=== PATIENT | female | born 1990 | race Caucasian/White ===

== ENCOUNTER 2017-08-02 16:01 | Emergency (ER) | payer OTHER ==
[~2017-08-02] VITALS: Ht 167.6 cm; Wt 104.3 kg
--- NOTE | 2017-08-02 17:43 | Urgent Treatment Center Report ---
History of Present Issue Date/Time Seen by Provider 08/02/17 1743 Visit Reason Pt arrived:Walked Presenting Problem:PT C/O LT EAR PAIN X2 WEEKS Location if Accident: Onset of symptoms date/time:/ or onset unknown for:MEDICAL HX UNKNOWN Have you (or family members/close friends) recently traveled outside the [place]? N If Yes, where/when: Have you had exposure to infectious disease within the past month? TB? Other? Specify: c/o left ear pain x 2 weeks and sinus pain x 1 week. Started w/ rhinorrhea and nasal congestion 2-3 weeks ago. Sudafed has helped but once stopped, symptoms no better. Denies fever. No ear drainage. Hearing described as "constantly under water". Sinus pain and pressure worse on left. Hasn't taken or tried anything else for symptoms. No fever, aches, chills. Source patient Exam Limitations no limitations ALLERGIES Coded Allergies: No Known Allergies (08/14/16) History Medical History General CAD? No Angina: No [place]: No Hypertension? Yes Hyperlipidemia? No CHF? No DVT? No PE? No COPD? No Asthma? No Anemia? No GERD? No Gastric ulcers? No GI Bleed? No Hernia? No Thyroid Problems? No Hypothyroidism? No CVA? No Seizures? No Diabetes? No Renal Insuffiency? No UTI? No Stones? No BPH? No GB Disease: No Nephritic Syndrome? No Asplenia? No Hepatitis? No Sickle Cell Disease? No Arthritis? No Migraines? No Cataracts? No Glaucoma? No MRSA? No HIV? No TB? No Anxiety? No Depression? No Cancer? No More? No Immunization HX DT/Tetanus UNKNOWN Flu 2014-FSN Pneumonia Refuses Surgical Hx Previous Surgery?N TONSILLECTOMY Family History Family HX Diabetes No CAD No Hypertension Yes Hyperlipidemia No Cancer No TB No Social History Smoking Hx Smoker: Never Smoker Tobacco: No Alcohol Alcohol: No Review of Systems All Other Systems Reviewed and Negative Constitutional see HPI Eyes denies drainage ENT see HPI. denies: throat pain. Respiratory denies cough Gastrointestinal denies no symptoms reported Musculoskeletal neck pain (left lateral, "below ear") Psychiatric/Neurological headache Physical Exam Vital Signs Vital Signs Date Time Temp Pulse Resp B/P Pulse O2 O2 Flow FiO2 Ox Delivery Rate 08/02 1707 98.1 68 20 128/87 99 General Appearance no apparent distress, obese Eye Exam - bilateral eye normal exam Ear, Nose, Throat clear fluid w/ mild bulging of left TM otherwise normal TMs and EACs, mild nasal congestion, moderate tenderness left maxillary sinus, normal pharynx Neck tender lateral (left, consistent w/ eustachian) Respiratory Status No: respiratory distress, productive cough, non productive cough. Lung Sounds anterior: lungs clear. posterior: lungs clear. bilateral: lungs clear. Cardiovascular regular rate/rhythm, no peripheral edema, no murmur Neurologic alert, oriented x 3 Mental status normal mood/affect Skin normal color, warm/dry Lymphatic no adenopathy Medical Decision Making LABS/Meds/Orders Pt receiving controlled substance in ED? No Departure Departure Time of Disposition 174 Disposition DC Home or Self Care(routine) Clinical Impression Primary Impression: Dysfunction of left eustachian tube Secondary Impressions: Left maxillary sinusitis Condition STABLE Referrals Wes VERNON,Ramses (Family) IMMEDIATELY for new or worsening symptoms OR no noticeable improvement over the next 48-72 hours. 911 for difficulty breathing or swallowing. Patient Instructions DI for Eustachian Tube Dysfunction-Adult, DI for Sinusitis Additional Instructions * Start antibiotic and be sure to take as ordered for the FULL length of time even if you feel better. Sinus infections do not get better overnight. It may take 2-3 days to notice much improvement so be sure to use conservative measures as discussed for symptoms. * augmentin can cause GI side effects. Probiotics help prevent these symptoms. * OK to continue Sudafed. Calritin + Sudafed would help your ear symptoms * Flonase 2 sprays each nostril daily to help with nasal congestion, sinus and ear pressure/inflammation * Lots of fluids * Sleep elevated * Humidifier/vaporizer * Sinus rinses twice a day Discharge Counseling Counseled pt/family regarding diagnosis, medications/RX, home care, follow up needs Prescriptions Current Visit Scripts Fluticasone Propionate (Flonase 50 Mcg Nasal [place]) 2 SPRAY NA DAILY #1 BOT Amoxicillin/Potassium Clav (Augmentin 875-125 Tablet) 1 EACH PO BID #[id number] TAB at 1800
[2017-08-02 17:54] VITALS: BP 128/87
--- OUTSIDE RECORDS SUMMARY | 2017-08-25 05:19 | External Medical Summary Rpt ---
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 Name Role Phone Cleve Villa MD, Unavailable Unavailable Cleve Vasquez MD, Unavailable Unavailable Maciel Vasquez MD Purpose Continuity of Care Document - 07-19-2013 through 2016 Problems Code Diagnosis DOS Provider Status 642.33 642.33 11-25-2013 [facility] TEPART 625.9 625.9 FEM 07-20-2013 [facility] NOS 648.93 648.93 OTH 07-20-2013 [facility] RTUM 789.03 789.03 07-20-2013 [place] [facility] Allergies, Adverse Reactions, Alerts Type Allergy to substance Adverse Reaction to Substance Substance Reaction Severity NO KNOWN ALLERGIES Unknown Unknown Medications Na ND Rx Da Fi Fi Am Da Di Ph RX Ph St me C No te ll ll ou ys ag ar # ys at rm s nt no ma ic us Or Da si cy ia de te s n re d Ib 62 01 0 No up 58 -1 ro 40 6- Lo fe 74 20 ng n 60 14 er 40 1 0M Ac G ti Ta ve bl et LA [address] 40 -1 AT 97 4- Lo ED 95 20 ng 30 14 er RI 9 NG Ac ER ti S ve IN JE CT IO N PI 11 01 0 No TO 11 -1 CI 11 4- Lo N 11 20 ng 30 13 14 er 3 UN Ac IT ti S/ ve LR 50 0M L IV MA 00 01 1 No GN 40 -1 ES 96 4- Lo IU 72 20 ng M 90 14 er BARKLEY 3 LF Ac ti 20 ve G/ 50 0 ML BA G MA 00 01 2 No PA 90 -1 P 41 4- Lo 32 98 20 ng 5 26 14 er MG 1 Ac TA ti BL ve ET LA 20 01 2 No NO 45 -1 LI 18 4- Lo N 71 20 ng CR 22 14 er EA 6 M Ac 56 ti GM ve LA [address] 40 -1 AT 97 0- Lo ED 95 20 ng 30 14 er RI 9 NG Ac ER ti S ve IN JE CT IO N MA 00 01 0 No GN 40 -1 ES 96 0- Lo IU 72 20 ng M 90 14 er BARKLEY 3 LF Ac ti 20 ve G/ 50 0 ML BA G MA 00 01 0 No PA 90 -1 P 41 0- Lo 32 98 20 ng 5 26 14 er MG 1 Ac TA ti BL ve ET MA 00 01 0 No OM 64 -1 ET 11 0- Lo LOPEZ 49 20 ng ZI 53 14 er NE 5 Ac 25 ti ve MG /M L AM PU L MA 00 09 0 No PA 90 -0 P 41 5- Lo 32 98 20 ng 5 26 13 er MG 1 Ac TA ti BL ve ET CE 00 09 0 No FA 40 -0 ZO 92 4- Lo LI 58 20 ng N 50 13 er 1 1 GM Ac ti AD ve D- VA N AL SO 00 09 0 No DI 40 -0 UM 97 4- Lo 10 20 ng CH 16 13 er LO 6 RI Ac DE ti ve 0. 9% SO LN Sa 63 09 1 No li 80 -0 ne 70 4- Lo 10 20 ng Fl 07 13 er us 5 h Ac 10 ti ML ve Sy ri ng e ON 00 09 0 No DA 64 -0 NS 16 4- Lo ET 08 20 ng RO 02 13 er N 5 HC Ac L ti 4 ve MG /2 ML AL Mo 00 09 0 No rp 40 -0 hi 91 4- Lo ne 76 20 ng 23 13 er 2M 0 G/ Ac Ml ti ve Sy ri ng e NI 47 09 0 No TR 78 -0 OF 10 4- Lo UR 30 20 ng AN 80 13 er TO 1 IN Ac ti MC ve R 10 0 MG CA P OX 00 09 1 No YC 40 -0 OD 60 4- Lo ON 51 20 ng E- 26 13 er AC 2 ET Ac AM ti IN ve OP HE N 5- 32 5 Vital Signs 07-20-2013 16:00 Name Value Interpretat Reference Comment ion Range Body 98.3 [degF] Temperature BP 56 mm[Hg] Diastolic BP Systolic 114 mm[Hg] Heart 73 /min Rate/Pulse Respiratory 16 /min Rate 07-20-2013 08:00 Name Value Interpretat Reference Comment ion Range O2% 98 % 07-19-2013 17:19 Name Value Interpretat Reference Comment ion Range Height 167.64 cm Weight 90.720 kg Measured 07-19-2013 11:45 Name Value Interpretat Reference Comment ion Range Body 98 [degF] Temperature BP 77 mm[Hg] Diastolic BP Systolic 162 mm[Hg] Heart 76 /min Rate/Pulse O2% 95 % Respiratory 20 /min Rate Weight 0 [oz_av] Measured Results Labs Lab Lab Date Result Refere Interp Status Commen Order Detail nces retati t Range on Magnesium SerPl-mCnc (11-29-2013 06:30) Magnesi 6.1 1.4-2.2 complet um 014 mg/dL ed SerPl-m 06:30 Cnc pH BldCo (11-28-2013 06:00) pH 7.37 7.35-7. complet BldCo 014 UNK 45 ed 06:00 BASIC METABOLIC PANEL (11-28-2013 03:40) Glucose 89 74-106 complet 014 mg/dL ed Bld-mCn 03:40 c BUN 14 7-18 complet Bld-mCn 014 mg/dL ed c 03:40 Creat 0.8 0.6-1.0 complet SerPl-m 014 mg/dL ed Cnc 03:40 Creat 186 50-200 complet Cl 014 ML/MIN ed predict 03:40 ed SerPl C-G-vRa te GFR/BSA 91 59- complet .pred 014 ML/MIN ed SerPl 03:40 Schwart z-vRate Sodium 137 136-145 complet SerPl-s 014 mmoL/L ed Cnc 03:40 Potassi 3.9 3.5-5.1 complet um 014 mmoL/L ed SerPl-s 03:40 Cnc Chlorid 103 98-107 complet e 014 mmoL/L ed SerPl-s 03:40 Cnc CO2 22 21.0-32 complet SerPl-s 014 mmoL/L .0 ed Cnc 03:40 Calcium 8.5 8.5-10. complet 014 mg/dL 1 ed SerPl-m 03:40 Cnc URIC ACID (11-28-2013 03:40) URIC 4.9 2.6-7.2 complet ACID 014 mg/dL ed 03:40 Magnesium SerPl-mCnc (11-28-2013 03:40) Magnesi 1.6 1.4-2.2 complet um 014 mg/dL ed SerPl-m 03:40 Cnc AST SerPl-cCnc (11-28-2013 03:40) AST 6 U/L 15-37 complet SerPl-c 014 ed Cnc 03:40 ALT SerPl-cCnc (11-28-2013 03:40) ALT 15 U/L 30-65 complet SerPl-c 014 ed Cnc 03:40 Fibrinogen PPP-mCnc (11-28-2013 03:40) Fibrino 486.0 204.1-4 complet gen 014 mg/dL 58.1 ed PPP-mCn 03:40 c D Dimer PPP (11-28-2013 03:40) D Dimer 1160 0-400 High complet PPP 014 ng/mL alert ed 03:40 CBC with AUTO DIFF (11-28-2013 03:40) WBC # 11-28- 11.2 4.8-10. complet Bld 014 K/MM3 8 ed Auto 03:40 RBC # 4.24 4.2-5.4 complet Bld 014 M/mm3 ed Auto 03:40 Hgb 12.2 12.2-16 complet Bld-mCn 014 g/dL .2 ed c 03:40 Hct Fr 34.0 % 37.0-47 complet Bld 014 .0 ed 03:40 MCV RBC 80.2 fl 82.2-97 complet 014 .8 ed 03:40 MCH RBC 28.7 pg 27-31.2 complet Qn 014 ed Auto 03:40 MEAN 35.7 31.8-35 complet CORPUSC 014 g/dl .4 ed ULAR 03:40 HGB CONC RDW RBC 01-14-2 14.0 % 11.5-17 complet Auto 014 .5 ed 03:40 Platele 11-28-2 238 142-424 complet t Bld 014 K/mm3 ed Ql 03:40 Manual MEAN 11-28-2 7.4 fl 7.4-10. complet PLATELE 014 4 ed T 03:40 VOLUME Granulo 11-28-2 69.9 % 37.0-80 complet cytes 014 .0 ed Fr Bld 03:40 Auto LYMPH % 14-2 24.1 % 10-50.0 complet 014 ed 03:40 Monocyt 14-2 4.8 % 1.7-9.3 complet es Fr 014 ed Bld 03:40 Auto Eosinop 14-2 1.0 % 0.1-12. complet hil Fr 014 0 ed Bld 03:40 Auto Basophi 11-28-2 0.3 % 0.1-2.0 complet ls Fr 014 ed Bld 03:40 Auto Granulo 11-28-2 7.8 1.8-7.8 complet cytes # 014 K/mm3 ed Bld 03:40 Auto Lymphoc 11-28-2 2.7 0.7-4.5 complet ytes Fr 014 K/mm3 ed Bld 03:40 Auto Monocyt 14-2 0.5 0.1-1.0 complet es # 014 K/mm3 ed Bld 03:40 Auto Eosinop 14-2 0.1 0.0-0.4 complet hil # 014 K/mm3 ed Bld 03:40 Auto Basophi 14-2 0.0 0-0.2 complet ls # 014 K/MM3 ed Bld 03:40 Auto URINALYSIS/COMPLETE (11-28-2013 02:50) URINE 11-28-2 YELLOW YELLOW complet COLOR 014 ed 02:50 URINE 11-28-2 CLEAR CLEAR complet APPEARA 014 ed NCE 02:50 URINE 11-28-2 NEGATIV NEG complet GLUCOSE 014 E ed - 02:50 DIPSTIC K URINE 11-28-2 NEGATIV NEG complet BILIRUB 014 E ed IN - 02:50 DIPSTIC K URINE 14-2 NEGATIV NEG complet KETONE 014 E mg/dL ed 02:50 URINE 11-28-2 1.025 1.005-1 complet SPECIFI 014 UNK .030 ed C 02:50 GRAVITY URINE 11-28-2 NEGATIV NEG complet BLOOD 014 E ed 02:50 URINE 11-28-2 6.5 UNK 5.0-8.5 complet PH 014 ed 02:50 URINE 14-2 NEGATIV NEG complet PROTEIN 014 E mg/dL ed - 02:50 DIPSTIC K URINE 14-2 0.2 NEG complet UROBILI 014 E.U./dL ed NOGEN - 02:50 DIPSTIC K URINE 14-2 NEGATIV NEG complet NITRATE 014 E ed - 02:50 DIPSTIC K URINE 11-28-2 1+ NEG complet LEUK 014 ed ESTERAS 02:50 E URINE 11-28-2 3-5 0 complet RBC 014 rbc/hpf ed 02:50 URINE 11-28-2 20-50 O complet WBC 014 wbc/hpf ed 02:50 URINE 14-2 10-20 0-5 complet SQUAMOU 014 #/hpf ed S CELLS 02:50 URINE 11-28-2 2+ O complet BACTERI 014 ed A 02:50 URINE 11-28-2 OCC NONE complet YEAST 014 ed 02:50 Magnesium SerPl-mCnc (11-25-2013 05:00) Magnesi 5.3 1.4-2.2 complet um 014 mg/dL ed SerPl-m 05:00 Cnc Blood group antibodies SerPl (11-24-2013 10:15) Blood NEGATIV complet group 014 E ed antibod 10:15 ies SerPl BASIC METABOLIC PANEL (11-24-2013 10:15) Glucose 84 74-106 complet 014 mg/dL ed Bld-mCn 10:15 c BUN 13 7-18 complet Bld-mCn 014 mg/dL ed c 10:15 Creat 0.7 0.6-1.0 complet SerPl-m 014 mg/dL ed Cnc 10:15 Creat 208 50-200 complet Cl 014 ML/MIN ed predict 10:15 ed SerPl C-G-vRa te GFR/BSA 106 59- complet .pred 014 ML/MIN ed SerPl 10:15 Schwart z-vRate Sodium 01-10-2 138 136-145 complet SerPl-s 014 mmoL/L ed Cnc 10:15 Potassi 3.7 3.5-5.1 complet um 014 mmoL/L ed SerPl-s 10:15 Cnc Chlorid 104 98-107 complet e 014 mmoL/L ed SerPl-s 10:15 Cnc CO2 23 21.0-32 complet SerPl-s 014 mmoL/L .0 ed Cnc 10:15 Calcium 8.7 8.5-10. complet 014 mg/dL 1 ed SerPl-m 10:15 Cnc URIC ACID (11-24-2013 10:15) URIC 4.6 2.6-7.2 complet ACID 014 mg/dL ed 10:15 AST SerPl-cCnc (11-24-2013 10:15) AST 8 U/L 15-37 complet SerPl-c 014 ed Cnc 10:15 ALT SerPl-cCnc (11-24-2013 10:15) ALT 26 U/L 30-65 complet SerPl-c 014 ed Cnc 10:15 PROTIME/INR (11-24-2013 10:15) PROTHRO 9.4 9.9-11. complet MBIN 014 SECONDS 6 ed TIME 10:15 INR Bld 0.88 0.9-1.1 complet 014 UNK ed 10:15 ACT PARTIAL THROMBO TIME (11-24-2013 10:15) ACT 25.2 25.3-32 complet PARTIAL 014 SECONDS .0 ed 10:15 THROMBO TIME Fibrinogen PPP-mCnc (11-24-2013 10:15) Fibrino 492.9 204.1-4 complet gen 014 mg/dL 58.1 ed PPP-mCn 10:15 c D Dimer PPP (11-24-2013 10:15) D Dimer 1000 0-400 High complet PPP 014 ng/mL alert ed 10:15 CBC with AUTO DIFF (11-24-2013 10:15) WBC # 11-24- 8.0 4.8-10. complet Bld 014 K/MM3 8 ed Auto 10:15 RBC # 4.45 4.2-5.4 complet Bld 014 M/mm3 ed Auto 10:15 Hgb 12.4 12.2-16 complet Bld-mCn 014 g/dL .2 ed c 10:15 Hct Fr 36.0 % 37.0-47 complet Bld 014 .0 ed 10:15 MCV RBC 80.9 fl 82.2-97 complet 014 .8 ed 10:15 MCH RBC 27.9 pg 27-31.2 complet Qn 014 ed Auto 10:15 MEAN 34.5 31.8-35 complet CORPUSC 014 g/dl .4 ed ULAR 10:15 HGB CONC RDW RBC 13.9 % 11.5-17 complet Auto 014 .5 ed 10:15 Platele 218 142-424 complet t Bld 014 K/mm3 ed Ql 10:15 Manual MEAN 7.5 fl 7.4-10. complet PLATELE 014 4 ed T 10:15 VOLUME Granulo 70.9 % 37.0-80 complet cytes 014 .0 ed Fr Bld 10:15 Auto LYMPH % 23.1 % 10-50.0 complet 014 ed 10:15 Monocyt 4.8 % 1.7-9.3 complet es Fr 014 ed Bld 10:15 Auto Eosinop 1.0 % 0.1-12. complet hil Fr 014 0 ed Bld 10:15 Auto Basophi 0.3 % 0.1-2.0 complet ls Fr 014 ed Bld 10:15 Auto Granulo 5.7 1.8-7.8 complet cytes # 014 K/mm3 ed Bld 10:15 Auto Lymphoc 2 1.9 0.7-4.5 complet ytes Fr 014 K/mm3 ed Bld 10:15 Auto Monocyt 11-24-2 0.4 0.1-1.0 complet es # 014 K/mm3 ed Bld 10:15 Auto Eosinop 0.1 0.0-0.4 complet hil # 014 K/mm3 ed Bld 10:15 Auto Basophi 0.0 0-0.2 complet ls # 014 K/MM3 ed Bld 10:15 Auto BASIC METABOLIC PANEL (07-20-2013 06:00) Glucose 88 74-106 complet 013 mg/dL ed Bld-mCn 06:00 c BUN 4 mg/dL 7-18 complet Bld-mCn 013 ed c 06:00 Creat 0.7 0.6-1.0 complet SerPl-m 013 mg/dL ed Cnc 06:00 ESTIMAT 185 50-200 complet ED 013 ML/MIN ed CREATIN 06:00 INE CLEARAN CE GFR 106 59- complet (ESTIMA 013 ML/MIN ed ZULLY) 06:00 Sodium 138 136-145 complet SerPl-s 013 mmoL/L ed Cnc 06:00 Potassi 3.4 3.5-5.1 complet um 013 mmoL/L ed SerPl-s 06:00 Cnc Chlorid 102 98-107 complet e 013 mmoL/L ed SerPl-s 06:00 Cnc CO2 28 21.0-32 complet SerPl-s 013 mmoL/L .0 ed Cnc 06:00 Calcium 8.2 8.5-10. complet 013 mg/dL 1 ed SerPl-m 06:00 Cnc CBC with AUTO DIFF (07-20-2013 06:00) WBC # 6.9 4.8-10. complet Bld 013 K/MM3 8 ed Auto 06:00 RBC # 3.88 4.2-5.4 complet Bld 013 M/mm3 ed Auto 06:00 Hgb 11.3 12.2-16 complet Bld-mCn 013 g/dL .2 ed c 06:00 Hct Fr 31.9 % 37.0-47 complet Bld 013 .0 ed 06:00 MCV RBC 82.3 fl 82.2-97 complet 013 .8 ed 06:00 MCH RBC 29.0 pg 27-31.2 complet Qn 013 ed Auto 06:00 MEAN 35.2 31.8-35 complet CORPUSC 013 g/dl .4 ed ULAR 06:00 HGB CONC RDW RBC 14.0 % 11.5-17 complet Auto 013 .5 ed 06:00 Platele 07-20-2 177 142-424 complet t Bld 013 K/mm3 ed Ql 06:00 Manual MEAN 7.2 fl 7.4-10. complet PLATELE 013 4 ed T 06:00 VOLUME Granulo 2 68.3 % 37.0-80 complet cytes 013 .0 ed Fr Bld 06:00 Auto LYMPH % 07-20-2 25.5 % 10-50.0 complet 013 ed 06:00 Monocyt 07-20-2 4.9 % 1.7-9.3 complet es Fr 013 ed Bld 06:00 Auto Eosinop 07-20-2 1.1 % 0.1-12. complet hil Fr 013 0 ed Bld 06:00 Auto Basophi 05-2 0.3 % 0.1-2.0 complet ls Fr 013 ed Bld 06:00 Auto Granulo 05-2 4.7 1.8-7.8 complet cytes # 013 K/mm3 ed Bld 06:00 Auto Lymphoc 05-2 1.8 0.7-4.5 complet ytes Fr 013 K/mm3 ed Bld 06:00 Auto Monocyt 05-2 0.3 0.1-1.0 complet es # 013 K/mm3 ed Bld 06:00 Auto Eosinop 05-2 0.1 0.0-0.4 complet hil # 013 K/mm3 ed Bld 06:00 Auto Basophi 05-2 0.0 0-0.2 complet ls # 013 K/MM3 ed Bld 06:00 Auto COMPREHENSIVE METABOLIC PANEL (07-19-2013 12:45) Glucose 88 74-106 complet 013 mg/dL ed Bld-mCn 12:45 c BUN 7 mg/dL 7-18 complet Bld-mCn 013 ed c 12:45 Creat 0.6 0.6-1.0 complet SerPl-m 013 mg/dL ed Cnc 12:45 ESTIMAT 216 50-200 complet ED 013 ML/MIN ed CREATIN 12:45 INE CLEARAN CE GFR 07-19- 126 59- complet (ESTIMA 013 ML/MIN ed ZULLY) 12:45 Sodium 04-2 141 136-145 complet SerPl-s 013 mmoL/L ed Cnc 12:45 Potassi 07-19-2 3.5 3.5-5.1 complet um 013 mmoL/L ed SerPl-s 12:45 Cnc Chlorid 105 98-107 complet e 013 mmoL/L ed SerPl-s 12:45 Cnc CO2 07-19-2 26 21.0-32 complet SerPl-s 013 mmoL/L .0 ed Cnc 12:45 Calcium 07-19-2 8.4 8.5-10. complet 013 mg/dL 1 ed SerPl-m 12:45 Cnc Prot 07-19-2 6.8 6.4-8.2 complet SerPl-m 013 gm/dL ed Cnc 12:45 Albumin 07-19-2 3.0 3.4-5.0 complet 013 gm/dL ed SerPl-m 12:45 Cnc Globuli 07-19-2 3.8 1.3-3.2 complet n 013 gm/dL ed Ser-mCn 12:45 c Albumin 07-19-2 0.8 UNK 1.1-1.8 complet /Glob 013 ed SerPl-m 12:45 Rto Bilirub 07-19-2 0.3 0.2-1.0 complet 013 mg/dL ed SerPl-m 12:45 Cnc AST 07-19-2 6 U/L 15-37 complet SerPl-c 013 ed Cnc 12:45 ALT 07-19-2 25 U/L 30-65 complet SerPl-c 013 ed Cnc 12:45 ALP 07-19-2 73 U/L 50-136 complet SerPl-c 013 ed Cnc 12:45 CBC with AUTO DIFF (07-19-2013 12:45) WBC # 09-04-2 7.8 4.8-10. complet Bld 013 K/MM3 8 ed Auto 12:45 RBC # -04-2 4.16 4.2-5.4 complet Bld 013 M/mm3 ed Auto 12:45 Hgb -04-2 11.7 12.2-16 complet Bld-mCn 013 g/dL .2 ed c 12:45 Hct Fr -04-2 33.8 % 37.0-47 complet Bld 013 .0 ed 12:45 MCV RBC -04-2 81.2 fl 82.2-97 complet 013 .8 ed 12:45 MCH RBC -04-2 28.2 pg 27-31.2 complet Qn 013 ed Auto 12:45 MEAN 04-2 34.7 31.8-35 complet CORPUSC 013 g/dl .4 ed ULAR 12:45 HGB CONC RDW RBC -04-2 14.5 % 11.5-17 complet Auto 013 .5 ed 12:45 Platele -04-2 203 142-424 complet t Bld 013 K/mm3 ed Ql 12:45 Manual MEAN 07-19-2 7.4 fl 7.4-10. complet PLATELE 013 4 ed T 12:45 VOLUME Granulo -04-2 78.4 % 37.0-80 complet cytes 013 .0 ed Fr Bld 12:45 Auto LYMPH % -04-2 16.5 % 10-50.0 complet 013 ed 12:45 Monocyt 09-04-2 4.0 % 1.7-9.3 complet es Fr 013 ed Bld 12:45 Auto Eosinop 09-04-2 0.9 % 0.1-12. complet hil Fr 013 0 ed Bld 12:45 Auto Basophi 09-04-2 0.2 % 0.1-2.0 complet ls Fr 013 ed Bld 12:45 Auto Granulo 09-04-2 6.1 1.8-7.8 complet cytes # 013 K/mm3 ed Bld 12:45 Auto Lymphoc 09-04-2 1.3 0.7-4.5 complet ytes Fr 013 K/mm3 ed Bld 12:45 Auto Monocyt 09-04-2 0.3 0.1-1.0 complet es # 013 K/mm3 ed Bld 12:45 Auto Eosinop 09-04-2 0.1 0.0-0.4 complet hil # 013 K/mm3 ed Bld 12:45 Auto Basophi 09-04-2 0.0 0-0.2 complet ls # 013 K/MM3 ed Bld 12:45 Auto URINALYSIS/COMPLETE (07-19-2013 11:55) URINE 09-04-2 YELLOW YELLOW complet COLOR 013 ed 11:55 URINE -04-2 CLEAR CLEAR complet APPEARA 013 ed NCE 11:55 URINE 09-04-2 NEGATIV NEG complet GLUCOSE 013 E ed - 11:55 DIPSTIC K URINE 09-04-2 NEGATIV NEG complet BILIRUB 013 E ed IN - 11:55 DIPSTIC K URINE 09-04-2 NEGATIV NEG complet KETONE 013 E mg/dL ed 11:55 URINE 09-04-2 1.015 1.005-1 complet SPECIFI 013 UNK .030 ed C 11:55 GRAVITY URINE -04-2 NEGATIV NEG complet BLOOD 013 E ed 11:55 URINE -04-2 7.5 UNK 5.0-8.5 complet PH 013 ed 11:55 URINE -04-2 NEGATIV NEG complet PROTEIN 013 E mg/dL ed - 11:55 DIPSTIC K URINE 09-04-2 0.2 NEG complet UROBILI 013 E.U./dL ed NOGEN - 11:55 DIPSTIC K URINE -04-2 NEGATIV NEG complet NITRATE 013 E ed - 11:55 DIPSTIC K URINE 09-04-2 1+ NEG complet LEUK 013 ed ESTERAS 11:55 E URINE 09-04-2 OCC 0 complet RBC 013 rbc/hpf ed 11:55 URINE -04-2 3-5 O complet WBC 013 wbc/hpf ed 11:55 URINE 09-04-2 5-10 0-5 complet SQUAMOU 013 #/hpf ed S CELLS 11:55 URINE -04-2 TRACE O complet BACTERI 013 ed A 11:55 URINE -04-2 OCC NONE complet WAXY 013 #/lpf ed CAST 11:55 URINE -04-2 1+ NONE complet YEAST 013 ed 11:55 Encounters Encounter Start End Date Code Location Performer Type Date Inpatient CARI Vasquez MD ([place]) 4 02:34 4 10:00 [facility] Inpatient CARI Vasquez MD ([place]) 4 09:50 4 13:00 [facility] Inpatient CARI Villa MD ([place]) 3 12:00 3 16:40 [facility]
--- OUTSIDE RECORDS SUMMARY | 2017-08-25 05:19 | External Medical Summary Rpt ---
Author Author CAITLIN Address Unknown Phone [email or web address] Purpose Continuity of Care Document - through 2016
--- OUTSIDE RECORDS SUMMARY | 2017-08-25 05:19 | External Medical Summary Rpt ---
Author Author CAITLIN Address Unknown Phone [email or web address] Purpose Continuity of Care Document - through 2016
--- OUTSIDE RECORDS SUMMARY | 2017-08-25 05:19 | External Medical Summary Rpt ---
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 Role Phone Cleve Villa MD, Unavailable Unavailable Cleve Vasquez MD, Unavailable Unavailable Maciel Vasquez MD Purpose Continuity of Care Document - 07-19-2013 through 2016 Problems Code Diagnosis DOS Provider Status 642.33 642.33 11-25-2013 [facility] TEPART 625.9 625.9 FEM 07-20-2013 [facility] NOS 648.93 648.93 OTH 07-20-2013 [facility] RTUM 789.03 789.03 07-20-2013 [place] [facility] Allergies, Adverse Reactions, Alerts [...] 1 Ac TA ti BL ve ET ND 00 01 0 No OM 64 -1 [...] Vasquez MD ([place]) 4 02:34 4 10:00 [facility] Inpatient CARI Vasquez MD ([place]) 4 09:50 4 13:00 [facility] Inpatient CARI Villa MD ([place]) 3 12:00 3 16:40 [facility]
--- OUTSIDE RECORDS SUMMARY | 2017-08-25 05:20 | External Medical Summary Rpt ---
Author Author CAITLIN Cooper, CAITLIN Cooper Organization [employer] Address Unknown Phone Unavailable
--- OUTSIDE RECORDS SUMMARY | 2017-08-25 05:20 | External Medical Summary Rpt ---
Demographics Preferred Language Frisian Marital Status Unknown Restorationist Affiliation Unknown Race Unknown Ethnic Group Unknown Author Author CHRISTIAN Address Unknown Phone Immunization No patient found.
--- OUTSIDE RECORDS SUMMARY | 2017-08-25 05:20 | External Medical Summary Rpt ---
Demographics Preferred Language Yakut Marital Status Unknown Anglican Affiliation Unknown Race Unknown Ethnic Group Unknown Author Author CHRISTIAN Address Unknown Phone Immunization No patient found.
== END 2017-08-02 17:55 | disposition home or self-care (01) ==
LOC: UTC 16:01
DX: H69.82 Other specified disorders of Eustachian tube, left ear (principal); J32.0 Chronic maxillary sinusitis; I10 Essential (primary) hypertension

== ENCOUNTER 2017-08-09 08:30 | Emergency (ER) | payer OTHER ==
[~2017-08-09] VITALS: Ht 167.6 cm; Wt 113.4 kg
[~2017-08-09 08:30] MED LIST: AUGMENTIN 875-1 EACH PO; BACTRIM DS 8001 TAB PO; FIORICET 325 MG1 TAB PO; FLINTSTONES1 CTB PO; FLONASE 50 MCG16 GM; KEFLEX500 M1 PO; PRENATAL PLUS1 TA1 PO; PROPRANOLOL HCL10 MG PO; PROPRANOLOL HYD10 MG PO; SILVADENE CR 2020 GM TP; TYLENOL ES500 M1 PO; TYLENOL W/CODEI1 TA2 PO; ZOFRAN4 MG PO
--- NOTE | 2017-08-09 08:53 | Emergency Room Report ---
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 N Clinical Suspician of Infection? N Mental Status: 1 - Regular (Normal Baseline) Sepsis Risk:Low Sepsis Risk Have you (or family members/close friends) recently traveled outside the [place]? N If Yes, where/when: Have you had exposure to infectious disease within the past month? N TB? Other? 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 ALLERGIES Coded Allergies: No Known Allergies (08/14/16) Home Medications Reported Medications No Known Home Medications History Medical History General CAD? No Angina: No [place]: No Hypertension? Yes Hyperlipidemia? No CHF? No DVT? No PE? No COPD? No Asthma? No Anemia? No GERD? No Gastric ulcers? No GI Bleed? No Hernia? No Thyroid Problems? No Hypothyroidism? No CVA? No Seizures? No Diabetes? No Renal Insuffiency? No End Stage Renal Disease? No UTI? No Stones? No BPH? No GB Disease: No Nephritic Syndrome? No Asplenia? No Hepatitis? No Sickle Cell Disease? No Arthritis? No Migraines? No Cataracts? No Glaucoma? No MRSA? No HIV? No TB? No Anxiety? No Depression? No Cancer? No More? 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 No: respiratory distress. Lung Sounds bilateral: normal breath sounds, lungs clear. 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 No Comment No complications. Results/Orders Current Medication Orders Sig/Dioni Start time Last Medication Dose Route Stop Time Status Admin Lidocaine HCl 0 .STK-MED ONE 08/09 0837 DC IJ Lidocaine HCl 0 .STK-MED ONE 08/09 0835 DC IJ Procedures Laceration/Wound Repair Laceration/Wound Repair Risks/benefits discussed with pt/guardian? Yes Tetanus status up to date Wound Location left dorsal hand Wound Length (cm) 2 Wound's Depth, Shape sucutaneous tissue, linear Wound Explored clean Risk of retained FB explained to pt/guardian? Yes Irrigated w/ Saline (ccs) 20 Wound Prep Betadine, Saline Anesthesia 1% Lidocaine, Local Volume Anesthetic (ccs) 15 Wound Debrided none Wound Repaired With sutures Suture Size/Type 5:0, Ethilon Layer Closure No Total Number Sutures 6 Sterile Dressing Applied Yes Splint Applied No Departure Departure Time of Disposition 0851 Disposition DC Home or Self Care(routine) Clinical Impression Primary Impression: Laceration Condition STABLE Referrals Ramses Harvey MD (PCP) in 8-9 days for suture removal Patient Instructions DI for Minor Laceration Additional Instructions Please keep wound clean and dry, change dressing daily, watch carefully for signs of possible local infection or follow-up with PCP or return to [facility] for suture removal in 8-9 days. Discharge Counseling Counseled pt/family regarding diagnosis, medications/RX, home care, follow up needs Comment Please keep wound clean and dry, change dressing daily, watch carefully for signs of possible local infection or follow-up with PCP or return to [facility] for suture removal in 8-9 days. Prescriptions Current Visit Scripts No Known Home Medications ED Critical Care Critical Care No at 1016
--- NOTE | 2017-08-09 08:53 | Emergency Room Report ---
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 N Clinical Suspician of Infection? N Mental Status: 1 - Regular (Normal Baseline) Sepsis Risk:Low Sepsis Risk Have you (or family members/close friends) recently traveled outside the [place]? N If Yes, where/when: Have you had exposure to infectious disease within the past month? N TB? Other? 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 ALLERGIES Coded Allergies: No Known Allergies (08/14/16) Home Medications Reported Medications No Known Home Medications History Medical History General CAD? No Angina: No [place]: No Hypertension? Yes Hyperlipidemia? No CHF? No DVT? No PE? No COPD? No Asthma? No Anemia? No GERD? No Gastric ulcers? No GI Bleed? No Hernia? No Thyroid Problems? No Hypothyroidism? No CVA? No Seizures? No Diabetes? No Renal Insuffiency? No End Stage Renal Disease? No UTI? No Stones? No BPH? No GB Disease: No Nephritic Syndrome? No Asplenia? No Hepatitis? No Sickle Cell Disease? No Arthritis? No Migraines? No Cataracts? No Glaucoma? No MRSA? No HIV? No TB? No Anxiety? No Depression? No Cancer? No More? 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 No: respiratory distress. Lung Sounds bilateral: normal breath sounds, lungs clear. 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 No Comment No complications. Results/Orders Current Medication Orders Sig/Dioni Start time Last Medication Dose Route Stop Time Status Admin Lidocaine HCl 0 .STK-MED ONE 08/09 0837 DC IJ Lidocaine HCl 0 .STK-MED ONE 08/09 0835 DC IJ Procedures Laceration/Wound Repair Laceration/Wound Repair Risks/benefits discussed with pt/guardian? Yes Tetanus status up to date Wound Location left dorsal hand Wound Length (cm) 2 Wound's Depth, Shape sucutaneous tissue, linear Wound Explored clean Risk of retained FB explained to pt/guardian? Yes Irrigated w/ Saline (ccs) 20 Wound Prep Betadine, Saline Anesthesia 1% Lidocaine, Local Volume Anesthetic (ccs) 15 Wound Debrided none Wound Repaired With sutures Suture Size/Type 5:0, Ethilon Layer Closure No Total Number Sutures 6 Sterile Dressing Applied Yes Splint Applied No Departure Departure Time of Disposition 0851 Disposition DC Home or Self Care(routine) Clinical Impression Primary Impression: Laceration Condition STABLE Referrals Ramses Harvey MD (PCP) in 8-9 days for suture removal Patient Instructions DI for Minor Laceration Additional Instructions Please keep wound clean and dry, change dressing daily, watch carefully for signs of possible local infection or follow-up with PCP or return to [facility] for suture removal in 8-9 days. Discharge Counseling Counseled pt/family regarding diagnosis, medications/RX, home care, follow up needs Comment Please keep wound clean and dry, change dressing daily, watch carefully for signs of possible local infection or follow-up with PCP or return to [facility] for suture removal in 8-9 days. Prescriptions Current Visit Scripts No Known Home Medications ED Critical Care Critical Care No at 1016
[2017-08-09 09:18] VITALS: BP 129/75
== END 2017-08-09 09:15 | disposition home or self-care (01) ==
LOC: ER 08:30
PROC: 0HQGXZZ Repair Left Hand Skin, External Approach (ICD-10-PCS; principal; 2017-08-09)
DX: S61.412A Laceration without foreign body of left hand, initial encounter (principal); W26.0XXA Contact with knife, initial encounter; Y92.69 Other specified industrial and construction area as the place of occurrence of the external cause

== ENCOUNTER 2017-08-17 15:47 | Emergency (ER) | payer OTHER ==
[2017-08-17 16:07] VITALS: BP 147/88
== END 2017-08-17 16:07 | disposition home or self-care (01) ==
LOC: UTC 15:47
DX: S61.412D Laceration without foreign body of left hand, subsequent encounter (principal)